=== PATIENT | female | born 1940 | race Caucasian/White ===

== ENCOUNTER 2016-07-07 05:19 | Inpatient (IN) | payer MEDICARE, BC ==
[~2016-07-07 05:19] MED LIST: ARIMIDEX DPS1 MG PO; ASPIR 8181 MG PO; BENICAR HCT 401 EACH PO; COLACE-DPS100 MG PO; CORTISPORIN CR7.5 GM; DILAUDID2 MG PO; DULCOLAX-DPS10 MG PO; FLEXERIL-DPS10 MG PO; LIVALO2 MG PO; MIRALAX DPS17 GM PO; NEURONTIN DPS300 MG PO; NEURONTIN DPS400 MG PO; NEURONTIN DPS600 MG PO; OXY IR DPS10 MG PO; PAMELOR DPS50 MG PO; SENOKOT DPS8.6 MG PO; TYLENOL DPS325 MG PO; VITAMIN B-121000 MCG PO; VITAMIN D35000 UNI1 PO
[2016-07-10] MEDS ORDERED: NEURONTIN DPS300 MG PO (13:37)
[2016-07-10] MEDS ORDERED: ZOFRAN4 MG PO (13:37)
[2016-07-10] MEDS ORDERED: NOLVADEX10 MG PO (13:38)
[2016-07-10] MEDS ORDERED: VALSARTAN-HCTZ1 EACH PO (13:38)
[2016-07-10] MEDS ORDERED: ASA325 MG PO (13:38)
[2016-07-10] MEDS ORDERED: COUMADIN5 MG PO (13:40)
[2016-07-10] MEDS ORDERED: MILK OF MA400 MG/5 M PO (13:40)
[2016-07-10] MEDS ORDERED: [UNRECOGNIZED DRUG - OTHER] IV (13:40)
[2016-07-10] MEDS ORDERED: SENOKOT S1 TAB PO (13:41)
[2016-07-10] MEDS ORDERED: MIRALAX PACKET17 GM PO (13:41)
[2016-07-10] MEDS ORDERED: OXY IR DPS5 MG PO (13:41)
[2016-07-28] MEDS ORDERED: OXY-CONTIN10 MG PO (10:41)
[2016-07-28] MEDS ORDERED: TYLENOL ARTHRI650 MG PO (10:44)
[2016-07-28] MEDS ORDERED: CRESTOR10 MG PO (10:45)
[2016-07-28] MEDS ORDERED: NORCO 5-325 TA1 EACH PO (10:45)
[2016-07-28] MEDS ORDERED: PROTONIX40 MG PO (10:46)
[2016-07-28] MEDS ORDERED: LOPRESSOR DPS50 MG PO (10:46)
[2016-09-16] MEDS ORDERED: CRESTOR10 MG PO (16:32)
[2016-09-16] MEDS ORDERED: NEURONTIN DPS100 MG PO (16:32)
[2016-09-16] MEDS ORDERED: OXY-CONTIN10 MG PO (16:33)
[2016-09-16] MEDS ORDERED: VALSARTAN-HCTZ1 EACH PO (16:33)
[2016-09-16] MEDS ORDERED: METOPROLOL TART25 MG PO (16:33)
[2016-09-16] MEDS ORDERED: DILAUDID2 MG PO (16:34)
[2016-09-16] MEDS ORDERED: OXY IR DPS5 MG PO (16:34)
[2016-09-16] MEDS ORDERED: NORCO 5-325 TA1 EACH PO (16:34)
[2016-09-16] MEDS ORDERED: [UNRECOGNIZED DRUG - MIXTURE] IV (16:36)
[2016-09-16] MEDS ORDERED: MIRALAX PACKET17 GM PO (16:37)
[2016-09-16] MEDS ORDERED: MILK OF MAGNESI10 ML PO (16:37)
[2016-09-16] MEDS ORDERED: ASA CHILDREN'S81 MG PO (16:37)
[2016-09-16] MEDS ORDERED: SENOKOT S1 TAB PO (16:37)
[2016-09-16] MEDS ORDERED: ZOFRAN4 MG PO (16:37)
[2016-09-16] MEDS ORDERED: TYLENOL ARTHRI650 MG PO (16:38)
[2016-09-16] MEDS ORDERED: CYMBALTA30 MG PO (16:38)
[2016-09-16] MEDS ORDERED: NORVASC DPS10 MG PO (16:38)
[2016-09-16] MEDS ORDERED: MEDI-PATCH WIT1 EACH TP (16:40)
== END 2016-07-09 12:28 | disposition home or self-care (01) | DRG 470 ==
DX: M16.11 Unilateral primary osteoarthritis, right hip (principal); N17.9 Acute kidney failure, unspecified; I95.9 Hypotension, unspecified; G62.9 Polyneuropathy, unspecified; N18.3 Chronic kidney disease, stage 3 (moderate); D62 Acute posthemorrhagic anemia; E66.9 Obesity, unspecified; Z68.35 Body mass index [BMI] 35.0-35.9, adult; F41.9 Anxiety disorder, unspecified; M81.0 Age-related osteoporosis without current pathological fracture; I25.2 Old myocardial infarction; I12.9 Hypertensive chronic kidney disease with stage 1 through stage 4 chronic kidney disease, or unspecified chronic kidney disease; M85.80 Other specified disorders of bone density and structure, unspecified site; E78.5 Hyperlipidemia, unspecified; I25.10 Atherosclerotic heart disease of native coronary artery without angina pectoris; Z98.1 Arthrodesis status; Z79.82 Long term (current) use of aspirin; Z85.3 Personal history of malignant neoplasm of breast; Z96.653 Presence of artificial knee joint, bilateral; Z82.49 Family history of ischemic heart disease and other diseases of the circulatory system

== ENCOUNTER 2016-07-24 10:49 | Inpatient (IN) | payer MEDICARE, BC ==
[~2016-07-24] VITALS: Ht 168.9 cm; Wt 100.6 kg
--- NOTE | ~2016-07-24 | CATH ---
Cardiac Diagnostic Report Demographics Patient Name INNA Osborne Gender Female Date of 1940 Age 75 year(s) Patient Number [id number] Date of Study 07/27/2016 Visit Number [id number] Room Number 426 Corporate ID Ht 168.91 cm Wt 100.24 kg Accession Number [id number] BSA 2.1 m kg/m Referring Pablo HERNANDEZ Primary Physician Physician Jordan Gibbons Performing Pablo HERNANDEZ Secondary Physician Physician Jordan Diagnostic Pablo HERNANDEZ Assisting Physician Physician Jordan Interventional Pablo HERNANDEZ Physician Internet Sales Consultant Physician Jordan Findings and Conclusions Diagnostic Findings and Conclusion Non-obstructive coronary artery disease. Mildly elevated LVEDP. Diagnostic Recommendations Medical management. Procedure Description The patient was brought to the diagnostic cardiac catheterization laboratory in the fasting, non-sedated state. Informed consent was obtained in the written and verbal form after the risks and benefits were explained. The patient had no further questions and agreed to proceed. The planned puncture-incision site(s) were clipped and prepped with ChloraPrep and draped in the usual sterile manner. Conscious sedation, supplemental oxygen, and pain control medications were delivered by a registered nurse under physician guidance. Surface ECG rhythm, blood pressure measurement, and pulse oximetry were monitored throughout the procedure. Arterial access. The left radial access site was infiltrated with lidocaine. The vessel was entered with the Seldinger technique. A 6F sheath was advanced into the vessel and used for catheter placement. Left heart catheterization. A JR4 catheter was advanced across the aortic valve to the left ventricle under fluoroscopic guidance. Resting hemodynamics were obtained. LV pressure was obtained. The catheter was gradually withdrawn into the aorta with continuous pressure recording. Selective right coronary angiography. A JR4 catheter was advanced into the right coronary vessel ostium under fluoroscopic guidance. Contrast was injected by hand. Images were obtained in multiple projections. Selective left coronary angiography. A JL3.5 catheter was advanced into the left coronary vessel ostium under Fluoroscopic guidance. Contrast was injected by hand. Images were obtained in multiple projections. Hemostasis: The sheath was removed and a TR Band was placed. Hemostasis was achieved. The patient was transferred to a regular nursing floor via cart accompanied by a nurse. The patient left the laboratory in stable condition. Procedure Procedure Type Diagnostic procedure:Angiography:, Coronary Angios w/LHC, Diagnostic Heart Cath SF Indications: Acute coronary syndrome, Elevated troponin and CAD. The procedure was explained in detail to the patient. Risks, complications and alternative treatments were reviewed. Written consent was obtained. Medications Reviewed with Patient prior to Procedure. Complications: No Complication. Angiographic Findings Dominance: Cardiac Arteries and Lesion Findings LMCA: Normal (0% Stenosis). LAD: Abnormal. Lesion on Prox LAD: Distal subsection.30% stenosis . Lesion on Mid LAD: Proximal subsection.40% stenosis . LCx: Abnormal. Lesion on Mid CX: 40% stenosis . RCA: Abnormal. Lesion on Dist RCA: 20% stenosis . Lesion on R PDA: Proximal subsection.30% stenosis . Coronary Tree Procedure Data Procedure Date Date: 07/27/2016Start: : AMEnd: 10:02 AM Entry Locations - Percutaneous access was performed through the Left Radial artery (Primary location). A 6 Fr sheath was inserted. Hemostasis was successfully obtained using a TR band. Procedure Medications Order and Administration + + +-------+-------+ !Time !Medication !Dosage !Route ! + + +-------+-------+ !07/27/2016 !Versed !2 mg !I.V. ! !09:31 AM ! ! ! ! + + +-------+-------+ !07/27/2016 !Fentanyl !50 mcg !I.V. ! !09:31 AM ! ! ! ! + + +-------+-------+ !07/27/2016 !Sodium Chloride !10 ml !I.V. ! !09:31 AM ! ! ! ! + + +-------+-------+ !07/27/2016 !SF Radial Cocktail: 200mcg Nitro, 2.5 mg ! !I.A. ! !09:34 AM !Verapamil, 5000u Heparin ! ! ! + + +-------+-------+ Devices Used - A6 FrCATH 6FR MULTIPACK CATHETERSwas used for:BilateralCoronary Angios. - A6 FrCATH 6FR MULTIPACK CATHETERSwas used for:BilateralCoronary Angios. - A6 FrCATH 6FR FL3.5 CATHETER 100CMwas used for:LeftsideCoronary Angios. Contrast Material - Isovue 68661 ml Fluoroscopy Time: Diagnostic: 4:06 minutes. Total: 4:06 minutes. Fluoroscopy Dose: Diagnostic: 662 mGy. Total: 662 mGy. Estimated Blood Loss: 6 ml. Medical History Risk Factors The patient risk factors include:treated hypercholesterolemia, treated hypertension, last creatinine: 1.3 mg/dl, creatinine clearance: 60.08 ml/min and dyslipidemia. Admission Data Admission Date: 07/25/2016 Admission Time: 11:23 AM Insurance Payors: Medicare. Clinical Evaluation Leading to Procedure Diagnosed on 07/26/2016 12:00 AM. - The patient's CAD presentation was assessed as: Non-STEMI. - The patient's anginal syndrome during the past two weeks was assessed as: Class III according to the [place] Cardiovascular [employer] Classification System (CCS). - The patient has been in a state of heart failure within the past two weeks. Hemodynamics Condition: Rest O2 Consumption: Estimated: 178.66Heart Rate: 54 bpm Pressures (mmHg) +-----+ + !Site !Pressure ! +-----+ + !AO !119/58 (80) ! +-----+ + !LV !136/4 ,14 ! +-----+ + !AO !140/65 (93) ! +-----+ + !LV !134/4 ,14 ! +-----+ + Valve Gradients and Areas + +---------+---------+---------+ +---------+ + !Valve !Peak !Mean !Area !Index !Flow !Source ! + +---------+---------+---------+ +---------+ + !Aortic !0 !0 ! ! ! ! ! + +---------+---------+---------+ +---------+ + !Aortic !0 !0 ! ! ! ! ! + +---------+---------+---------+ +---------+ + Shunts Oxygen Values O2 Capacity 131.92 O2 Consumption 178.66 Discharge Data Discharge Date: 07/27/2016 Hospital Status: Inpatient Signatures
--- NOTE | ~2016-07-24 | ECH ---
Transthoracic Echocardiography Report (TTE) Demographics Patient Name WALKER KEITH Date of Study 07/25/2016 Patient Number [id number] Visit Number [id number] Date of 1940 Room Number 426 Accession Number [id number] Gender Female Age 75 year(s) Referring Pablo HERNANDEZ Secretary Administrative Assistant Dalia Mendez Physician Jordan HOOD Boone MD Physician Interpreting Pablo HERNANDEZ Associate Material Handler Physician Jordan Supervising Ordering Physician Pablo HERNANDEZ MD/DESTINEE Ortega Nurse Stress Fulfillment Coordinator Conclusions Contractility Score Summary Normal Left Ventricular contractility was noted. Summary Technically good exam. The estimated left ventricular ejection fraction is 60-65%. Diastolic assessment reveals Grade I diastolic dysfunction. There appears to be a tiny perimembranous ventricular septal defect. The left atrium is mildly dilated by LA volume index measurement. Mild tricuspid regurgitation by color Doppler. There is mild pulmonary hypertension. The pulmonary pressure (RVSP) is 44 mmHg. The ascending aorta appears mildly dilated. The maximum diameter measures 3.4 cm. Recommendation The patient will be given the results of this study by the physician who ordered the exam. Procedure Type of Study TTE procedure:Echo Complete SF. Procedure Date Date: 07/25/2016 Start: 06:12 PM Technical Quality: Good visualization Indications:Elevated Troponin, Chest pain, Hypertension and Coronary artery disease. Appropriate Use Criteria: 9 Height: 66 inches Weight: 223 pounds BSA: 2.09 m Rhythm: NSR HR: 76 bpm BP: 149/73 mmHg M-Mode/2D Measurements LV Diastolic Dimension: 4.77 cm LV Systolic Dimension: 3.64 cm LV Septum Diastolic: 0.95 cm LV PW Diastolic: 0.98 cm AO Root Dimension: 2.8 cm Cardiac Output: 6.64 l/min LA Dimension: 4.84 cm Cardiac Index: 3.18 l/min*m RV Diastolic Dimension: 3.74 cm LA volume index: 40 ml/m LVOT: 1.97 cm LVOT VTI: 28.69 cm RV Base: 3.6 cm LV Stroke volume: 87.4 ml RV Mid: 2.5 cm LV Stroke volume index: 41.82 ml/m TAPSE: 2 cm TDI-S': 15 cm/s Doppler Measurements AV Mean Gradient: 7.22 mmHg MV Peak E-Wave: 0.72 m/s LVOT Peak Velocity: 1.36 m/s MV Peak A-Wave: 0.89 m/s AV Area (Continuity):2.39 cm MV P1/2t: 66.1 msec TR Velocity:3.13 m/s TR Gradient:39.19 mmHg MV Deceleration Time: 244.5 msec Estimated RAP:5 mmHg MV Area (PHT): 3.33 cm Estimated RVSP: 44 mmHg PV Peak Velocity: 1.11 m/s E' Septal Velocity: 0.08 m/s PV Peak Gradient: 4.95 mmHg E' Lateral Velocity: 0.14 m/s Estimated PASP: 44.19 mmHg A' Septal Velocity: 0.1 m/s RA Area: 16.44 cm Findings Left Ventricle Normal left ventricle size and function. Diastolic assessment reveals Grade I diastolic dysfunction. There appears to be a tiny perimembranous ventricular septal defect. Right Ventricle Normal right ventricle structure and function. Left Atrium The left atrium is mildly dilated by LA volume index measurement. Right Atrium Normal right atrial size. Mitral Valve Normal mitral valve structure and function. Mild mitral regurgitation by color Doppler. Aortic Valve Normal aortic valve structure and function. Tricuspid Valve Normal tricuspid valve structure and function. Mild tricuspid regurgitation by color Doppler. There is mild pulmonary hypertension. The pulmonary pressure (RVSP) is 44 mmHg. Pulmonic Valve Normal pulmonic valve structure and function. Trivial pulmonic valve regurgitation by color Doppler. Pericardial Effusion No evidence of pericardial effusion. Miscellaneous The ascending aorta appears mildly dilated. The maximum diameter measures 3.4 cm. Pleural Effusion No evidence of pleural effusion. Contractility Score LV regional wall motion:(0-Non visualized 1-Normal 2-Hypokinesis 3-Akinesis 4-Dyskinesis 5-Aneurysm) Signature
[~2016-07-24 10:49] MED LIST changes: +ASA325 MG PO; +COUMADIN5 MG PO; +MILK OF MA400 MG/5 M PO; +MIRALAX PACKET17 GM PO; +NOLVADEX10 MG PO; +OXY IR DPS5 MG PO; +SENOKOT S1 TAB PO; +VALSARTAN-HCTZ1 EACH PO; +ZOFRAN4 MG PO; +[UNRECOGNIZED DRUG - OTHER] IV
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
[2016-07-28] MEDS ORDERED: OXY-CONTIN10 MG PO (10:41)
[2016-07-28] MEDS ORDERED: TYLENOL ARTHRI650 MG PO (10:44)
[2016-07-28] MEDS ORDERED: CRESTOR10 MG PO (10:45)
[2016-07-28] MEDS ORDERED: NORCO 5-325 TA1 EACH PO (10:45)
[2016-07-28] MEDS ORDERED: LOPRESSOR DPS50 MG PO (10:46)
[2016-07-28] MEDS ORDERED: PROTONIX40 MG PO (10:46)
--- NOTE | 2016-07-28 12:01 | HP ---
ADMIT: 07/24/2016 RM/LOC: 426 [facility] MR#: [id number] [address] [address] WALKER KEITH [address] [place] [address] History and Physical SEX: F AGE: 75 : 1940 DATE OF SERVICE: CHIEF COMPLAINT: Back pain, shortness of breath, neck pain. HISTORY OF PRESENT ILLNESS: The patient is a very pleasant, 75-year-old female. She has a past medical history of coronary disease, hypertension, hyperlipidemia, recent right anterior hip replacement, prior history of breast cancer, currently on DVT prophylaxis after her hip replacement, who presents to medical stay today for a hospital followup visit. She had her hip replaced on the 07/07. The patient notes today she just does not feel right. This morning, she had an abrupt onset of pain across her back more on the right midback, has had this deep 4/5 pain, it is associated with this. She has been short of breath, dizzy, and a little diaphoretic, as well as had some pain kind of radiating up from her chest into her anterior neck. The patient notes she has never quite had pain like this, and notes it is different than any anginal discomfort she has had before. She just does not feel like she might be able to tolerate exercise as well. She noted that she has been dealing with a little bit more hip pain in the last couple of days after doing quite well after surgery. No nausea or vomiting is noted. No abdominal pain. Notes that she might be not eating the best after surgery. She is taking all her medicines as directed. She denies any actual chest pain or palpitations. Does continue to have ongoing issues with constipation, but no bladder problems are noted. No headache or vision changes. Does note her weight is stable. With this finding, she was admitted for observation. PAST MEDICAL HISTORY: 1. Anxiety. 2. Osteopenia. 3. Osteoarthritis of the knee, status post bilateral total knee arthroplasty. 4. Osteoarthritis of the hip, status post right anterior total hip arthroplasty. 5. Obesity. 6. History of breast cancer, status post lumpectomy, on Femara. 7. Hypertension. 8. Hyperlipidemia. 9. History of coronary artery disease, status post non ST-segment elevation [place]. 10.History of cervical spinal stenosis, status post operative intervention. 11.History of lumbar spinal stenosis, status post lumbar fusion and did plan about pain pump. 12.Chronic kidney disease, stage 3. 13.Status post hysterectomy. 14.Status post as mentioned pain pump placement. MEDICATIONS: Her current medications include: 1. Acetaminophen. ADMIT: 07/24/2016 RM/LOC: 426 [facility] MR#: [id number] [address] [address] WALKER KEITH [facility] [place] [address] History and Physical SEX: F AGE: 75 : 1940 2. Aspirin. 3. Fentanyl infusion via epidural pain pump. 4. Gabapentin. 5. Magnesium. 6. Zofran. 7. Oxycodone. 8. MiraLax. 9. Senna. 10.Tamoxifen. 11.Diovan. 12.Coumadin. ALLERGIES: 1. AARON INHIBITORS. 2. ATORVASTATIN. 3. PENICILLINS. FAMILY HISTORY: Mother with coronary disease, arthritis, dementia, osteoporosis. Father with coronary disease, history of COPD. SOCIAL HISTORY: She is a nonsmoker, occasional drinker. Lives at home with her . REVIEW OF SYSTEMS: As noted above. All systems are reviewed and negative. PHYSICAL EXAMINATION: VITAL SIGNS: 132/80, 64, 16. She is afebrile. Her weight is 223 pounds. GENERAL: This is an obese female. She appears her stated age. She is anxious. She is alert and orient x3. HEENT: Normocephalic and atraumatic. Mucous membranes are little dry. NECK: Supple. SKIN: Normal moisture. No rashes are noted. NECK: Supple. LUNGS: Clear to auscultation without wheezes, rhonchi, or rales. HEART: Regular rate and rhythm. No murmurs, clicks, or rubs. ABDOMEN: Soft, nontender, nondistended. Positive bowel sounds throughout. EXTREMITIES: Show no edema. NEUROLOGIC: Shows cranial nerves are intact. No focal deficits are noted. Her lower extremity vascular exam shows, no edema. She has good peripheral pulses. Her orthopedic exam shows a right hip incision is well healed, clean, and dry. LABORATORY DATA: EKG here in clinic, shows normal sinus rhythm at 77 beats per minute, it was at compared to one from 2009, and I do not see any significant ST or T-wave changes noted. Right now, her cardiac enzymes, blood count, metabolic panel, chest x-ray, and INR pending. ADMIT: 07/24/2016 RM/LOC: 426 [facility] MR#: [id number] [address] [address] WALKER KEITH [facility] [place] [address] History and Physical SEX: F AGE: 75 : 1940 ASSESSMENT AND PLAN: 1. Thoracic back pain. 2. Dyspnea. 3. Dizziness. 4. Neck pain. 5. Known history of coronary artery disease. 6. Hypertension. 7. Status post recent hip replacement. 8. Deep vein thrombosis prophylaxis with Coumadin. 9. Chronic back pain, status post implantable pain pump. 10.DVT prophylaxis. 11.Status post recent total hip arthroplasty. 12.History of breast cancer, previously on Femara. At this time, cardiac enzymes are pending. Her EKG shows nothing acute. I am also waiting on her blood count, metabolic panel, and INR. Certainly, will always be concerned with her dyspnea, about PE, but if her INR is therapeutic, I am not going to go that route. We will plan on serial cardiac enzymes, EKG, and telemetry monitoring, and we will see how she does. In the past, she had very atypical symptoms of angina, and we will want to follow her very closely as an observation patient. Mason Glasgow MD/ vivienne JOB #: [id number] CC: Mason Glasgow, Attending Physician Mason Glasgow, Family Physician
--- NOTE | 2016-08-07 12:50 | DS ---
ADMIT: 07/25/2016 RM/LOC: 426 [facility] MR#: [id number] [address] [address] WALKER KEITH [address] [place] [address] Discharge Summary SEX: F AGE: 75 : 1940 ADMISSION DATE: 07/25/2016 DISCHARGE DATE: 07/27/2016 DISCHARGE DIAGNOSES: 1. Elevated troponin, possible ACS (acute coronary syndrome). 2. Nonobstructive coronary disease, status post left heart catheterization. 3. Hypertension. 4. Hyperlipidemia. 5. Atypical chest pain, resolved. 6. History of breast cancer. 7. Severe lumbar spinal stenosis, status post intervention with implantable pain pump. 8. Anxiety. 9. Status post right total hip arthroplasty, on DVT (deep venous thrombosis) prophylaxis with Coumadin. PROCEDURES: 1. Left heart catheterization. 2. Echocardiogram. CONSULTATIONS: Cardiology. REASON FOR ADMISSION: A very pleasant, 75-year-old female with extensive past medical history, presented to [facility]. Was a direct admission from the office when she presented to clinic with complaints of back, chest and pain radiating to her neck. With her symptoms and her history of coronary disease she was admitted for observation. For complete details, please see H and P dictated on the day of admission. At the time of admission, the patient was placed in a telemetry bed. She was monitored with serial cardiac enzymes, EKGs and telemetry monitoring. She did have a mild bump in her troponin and Cardiology was consulted. She really remained pain free. They trended out her enzymes with her history and risk factors. She underwent left heart catheterization. It just really showed nonobstructive disease. No interventions were done. Medications were titrated, a statin was added back, as well as nitrate. There was question whether this was just catecholamine induced troponin leak. The patient felt well, ambulated and ate without difficulty and was thought to be ready for discharge on 07/27. Her discharge medications are found on her discharge medication sheet. Her diet will be cardiac diet as tolerated. Her activity will be as tolerated, for physical therapy with hip and we will see her back in the office in the next couple of weeks. She will also have follow up as scheduled with cardiology. Mason Glasgow MD/ gilmarg JOB #: [id number] CC: Mason Glasgow MD, Attending Physician ADMIT: 07/25/2016 RM/LOC: 426 [facility] MR#: [id number] [address] [address] WALKER KEITH [facility] [place] [address] Discharge Summary SEX: F AGE: 75 : 1940 Mason Glasgow MD, Family Physician
[2016-09-16] MEDS ORDERED: CRESTOR10 MG PO (16:32)
[2016-09-16] MEDS ORDERED: NEURONTIN DPS100 MG PO (16:32)
[2016-09-16] MEDS ORDERED: VALSARTAN-HCTZ1 EACH PO (16:33)
[2016-09-16] MEDS ORDERED: OXY-CONTIN10 MG PO (16:33)
[2016-09-16] MEDS ORDERED: METOPROLOL TART25 MG PO (16:33)
[2016-09-16] MEDS ORDERED: OXY IR DPS5 MG PO (16:34)
[2016-09-16] MEDS ORDERED: NORCO 5-325 TA1 EACH PO (16:34)
[2016-09-16] MEDS ORDERED: DILAUDID2 MG PO (16:34)
[2016-09-16] MEDS ORDERED: [UNRECOGNIZED DRUG - MIXTURE] IV (16:36)
[2016-09-16] MEDS ORDERED: MIRALAX PACKET17 GM PO (16:37)
[2016-09-16] MEDS ORDERED: SENOKOT S1 TAB PO (16:37)
[2016-09-16] MEDS ORDERED: ZOFRAN4 MG PO (16:37)
[2016-09-16] MEDS ORDERED: MILK OF MAGNESI10 ML PO (16:37)
[2016-09-16] MEDS ORDERED: ASA CHILDREN'S81 MG PO (16:37)
[2016-09-16] MEDS ORDERED: NORVASC DPS10 MG PO (16:38)
[2016-09-16] MEDS ORDERED: TYLENOL ARTHRI650 MG PO (16:38)
[2016-09-16] MEDS ORDERED: CYMBALTA30 MG PO (16:38)
[2016-09-16] MEDS ORDERED: MEDI-PATCH WIT1 EACH TP (16:40)
== END 2016-07-27 16:05 | disposition home or self-care (01) | DRG 287 ==
LOC: 4PCU 10:49
PROVIDERS: ADMIT Internal Medicine
PROC: 4A023N7 Measurement of Cardiac Sampling and Pressure, Left Heart, Percutaneous Approach (ICD-10-PCS; principal; 2016-07-27)
PROC: B2111ZZ Fluoroscopy of Multiple Coronary Arteries using Low Osmolar Contrast (ICD-10-PCS; principal; 2016-07-27)
DX: I25.110 Atherosclerotic heart disease of native coronary artery with unstable angina pectoris (principal); D63.1 Anemia in chronic kidney disease; N18.3 Chronic kidney disease, stage 3 (moderate); I12.9 Hypertensive chronic kidney disease with stage 1 through stage 4 chronic kidney disease, or unspecified chronic kidney disease; R79.89 Other specified abnormal findings of blood chemistry; E78.5 Hyperlipidemia, unspecified; I25.2 Old myocardial infarction; E66.9 Obesity, unspecified; Z68.35 Body mass index [BMI] 35.0-35.9, adult; F41.9 Anxiety disorder, unspecified; M48.06 Spinal stenosis, lumbar region; M85.80 Other specified disorders of bone density and structure, unspecified site; Z96.653 Presence of artificial knee joint, bilateral; Z96.641 Presence of right artificial hip joint; Z85.3 Personal history of malignant neoplasm of breast; Z98.1 Arthrodesis status; Z79.82 Long term (current) use of aspirin; Z82.49 Family history of ischemic heart disease and other diseases of the circulatory system; Z79.01 Long term (current) use of anticoagulants

== ENCOUNTER → 2016-08-25 | Outpatient (CLI) | payer MEDICARE, BC ==
[~2016-08-25] MED LIST changes: +ASA CHILDREN'S81 MG PO; +CRESTOR10 MG PO; +CYMBALTA30 MG PO; +LOPRESSOR DPS50 MG PO; +MEDI-PATCH WIT1 EACH TP; +METOPROLOL TART25 MG PO; +MILK OF MAGNESI10 ML PO; +NEURONTIN DPS100 MG PO; +NORCO 5-325 TA1 EACH PO; +NORVASC DPS10 MG PO; +OXY-CONTIN10 MG PO; +PROTONIX40 MG PO; +TYLENOL ARTHRI650 MG PO; +[UNRECOGNIZED DRUG - MIXTURE] IV
== END | disposition home or self-care (01) ==
LOC: RAD.S 15:35
DX: Z47.89 Encounter for other orthopedic aftercare (principal); M47.816 Spondylosis without myelopathy or radiculopathy, lumbar region; M43.16 Spondylolisthesis, lumbar region; Z98.1 Arthrodesis status

== ENCOUNTER 2016-09-04 09:56 | Emergency (ER) | payer MEDICARE, BC ==
[~2016-09-04 09:56] MED LIST changes: -ASA CHILDREN'S81 MG PO; -CYMBALTA30 MG PO; -MEDI-PATCH WIT1 EACH TP; -METOPROLOL TART25 MG PO; -MILK OF MAGNESI10 ML PO; -NEURONTIN DPS100 MG PO; -NORVASC DPS10 MG PO; -[UNRECOGNIZED DRUG - MIXTURE] IV
--- NOTE | 2016-09-08 16:07 | ER ---
ADMIT: 09/04/2016 RM/LOC: ER [facility] MR#: [id number] 2620 [facility] [address] [place], [place] [address] WALKER KEITH [address] [address] Emergency Room Report SEX: F AGE: 76 : 1940 DATE: 09/04/2016 ADDENDUM: A 76-year-old white female, coming in with kind of atypical chest pain, it is posterior, kind of goes to her right shoulder. She is concerned about this. She recently had a heart cath that did not show any obstructive disease, and has been worked up for that. She does have cardiac disease, hypertension, hyperlipidemia. But as noted, recent heart disease did not show anything. We did do a CTA, she is somewhat concerned about that, and that was negative. I did speak to Dr. Glasgow. Besides her chronic pain, there is a little bit of underlying anxiety. At this time, she needs some of her pain medications refilled which I will do since this is the weekend, it will be 5 mg one to two p.o. q.6 p.r.n. pain which is what her pain doctor has given her for breakthrough pain. Also, I have spoke to Dr. Glasgow, we are going to try her on a little Xanax 0.25 mg one p.o. q.6 p.r.n. anxiety stress. She should then be followed up with her doctor. We gave her 30 of each of those. CONDITION ON DISCHARGE: Improved. Chucky Hayward MD/ vivienne JOB #: [id number] CC: Chucky Hayward MD, Attending Physician UNKNOWN, Family Physician
[2016-09-16] MEDS ORDERED: CRESTOR10 MG PO (16:32)
[2016-09-16] MEDS ORDERED: NEURONTIN DPS100 MG PO (16:32)
[2016-09-16] MEDS ORDERED: OXY-CONTIN10 MG PO (16:33)
[2016-09-16] MEDS ORDERED: METOPROLOL TART25 MG PO (16:33)
[2016-09-16] MEDS ORDERED: VALSARTAN-HCTZ1 EACH PO (16:33)
[2016-09-16] MEDS ORDERED: DILAUDID2 MG PO (16:34)
[2016-09-16] MEDS ORDERED: NORCO 5-325 TA1 EACH PO (16:34)
[2016-09-16] MEDS ORDERED: OXY IR DPS5 MG PO (16:34)
[2016-09-16] MEDS ORDERED: [UNRECOGNIZED DRUG - MIXTURE] IV (16:36)
[2016-09-16] MEDS ORDERED: ASA CHILDREN'S81 MG PO (16:37)
[2016-09-16] MEDS ORDERED: MILK OF MAGNESI10 ML PO (16:37)
[2016-09-16] MEDS ORDERED: ZOFRAN4 MG PO (16:37)
[2016-09-16] MEDS ORDERED: MIRALAX PACKET17 GM PO (16:37)
[2016-09-16] MEDS ORDERED: SENOKOT S1 TAB PO (16:37)
[2016-09-16] MEDS ORDERED: CYMBALTA30 MG PO (16:38)
[2016-09-16] MEDS ORDERED: NORVASC DPS10 MG PO (16:38)
[2016-09-16] MEDS ORDERED: TYLENOL ARTHRI650 MG PO (16:38)
[2016-09-16] MEDS ORDERED: MEDI-PATCH WIT1 EACH TP (16:40)
== END 2016-09-04 13:55 | disposition home or self-care (01) ==
LOC: ER 09:56
DX: R07.89 Other chest pain (principal); G89.4 Chronic pain syndrome; I10 Essential (primary) hypertension; E78.5 Hyperlipidemia, unspecified; Z90.710 Acquired absence of both cervix and uterus; Z88.0 Allergy status to penicillin

== ENCOUNTER 2016-09-09 07:43 | Emergency (ER) | payer MEDICARE, BC ==
--- NOTE | 2016-09-14 10:35 | ER ---
ADMIT: 09/09/2016 RM/LOC: ER [facility] MR#: [id number] 2620 [facility] [address] [place], [place] [address] WALKER KEITH [facility] [place] [address] Emergency Room Report SEX: F AGE: 76 : 1940 DATE: 09/09/2016 ADDENDUM: This 76-year-old, white female coming in with recurrent chronic back pain. She is on a pain pump and it is not helping her. Dilaudid has helped her in the past. I have spoken with her pain doctor, Dr. YUE Bar, asked for an MRI of her back, just for checking the pain pump and catheter. That was negative. I spoke with Dr. Wright. We have scheduled her for a bone scan to make sure she does not have recurrence of her breast cancer. Evidently she has been 5 years out free of cancer. She stage is 3C, I do believe. I have also spoke to her primary, Dr. Mason Glasgow, just to upgrade him and fill him in on all this. We did not draw any blood work, just got the MRI. She has gotten 2 mg plus of Dilaudid, she is very comfortable with that. We are discharging home with 2 mg 1 p.o. q.6 p.r.n. pain of the Dilaudid substituting for the oxycodone which was not helping. CONDITION ON DISCHARGE: Improved. Chucky Hayward MD/ vivienne JOB #: [id number] CC: Chucky Hayward MD, Attending Physician Mason Glasgow MD, Family Physician
[2016-09-16] MEDS ORDERED: NEURONTIN DPS100 MG PO (16:32)
[2016-09-16] MEDS ORDERED: CRESTOR10 MG PO (16:32)
[2016-09-16] MEDS ORDERED: VALSARTAN-HCTZ1 EACH PO (16:33)
[2016-09-16] MEDS ORDERED: OXY-CONTIN10 MG PO (16:33)
[2016-09-16] MEDS ORDERED: METOPROLOL TART25 MG PO (16:33)
[2016-09-16] MEDS ORDERED: NORCO 5-325 TA1 EACH PO (16:34)
[2016-09-16] MEDS ORDERED: DILAUDID2 MG PO (16:34)
[2016-09-16] MEDS ORDERED: OXY IR DPS5 MG PO (16:34)
[2016-09-16] MEDS ORDERED: [UNRECOGNIZED DRUG - MIXTURE] IV (16:36)
[2016-09-16] MEDS ORDERED: ASA CHILDREN'S81 MG PO (16:37)
[2016-09-16] MEDS ORDERED: SENOKOT S1 TAB PO (16:37)
[2016-09-16] MEDS ORDERED: MIRALAX PACKET17 GM PO (16:37)
[2016-09-16] MEDS ORDERED: ZOFRAN4 MG PO (16:37)
[2016-09-16] MEDS ORDERED: MILK OF MAGNESI10 ML PO (16:37)
[2016-09-16] MEDS ORDERED: CYMBALTA30 MG PO (16:38)
[2016-09-16] MEDS ORDERED: TYLENOL ARTHRI650 MG PO (16:38)
[2016-09-16] MEDS ORDERED: NORVASC DPS10 MG PO (16:38)
[2016-09-16] MEDS ORDERED: MEDI-PATCH WIT1 EACH TP (16:40)
== END 2016-09-09 13:30 | disposition home or self-care (01) ==
LOC: ER 07:43
DX: G89.29 Other chronic pain (principal); M54.6 Pain in thoracic spine; F41.9 Anxiety disorder, unspecified; C50.919 Malignant neoplasm of unspecified site of unspecified female breast; J44.9 Chronic obstructive pulmonary disease, unspecified; E11.9 Type 2 diabetes mellitus without complications; I25.2 Old myocardial infarction; I25.10 Atherosclerotic heart disease of native coronary artery without angina pectoris; Z88.8 Allergy status to other drugs, medicaments and biological substances; Z88.0 Allergy status to penicillin

== ENCOUNTER 2016-09-10 03:34 | Inpatient (IN) | payer MEDICARE, BC ==
[~2016-09-10] VITALS: Ht 168.9 cm; Wt 94.7 kg
--- NOTE | 2016-09-10 19:01 | ER ---
ADMIT: 09/10/2016 RM/LOC: ER [facility] MR#: [id number] [id number] [place], [place] [address] WALKER KEITH [address] [place] [address] Emergency Room Report SEX: F AGE: 76 : 1940 DATE: 09/10/2016 HISTORY OF PRESENT ILLNESS: The patient is a 76-year-old female with a past medical history of breast cancer in remission, anxiety, chronic low back pain, status post multiple back surgeries per patient and pain pump placement, came to the ER with chief complaint of right posterior shoulder pain. The patient states pain has started a week ago and is continues and Dilaudid p.o. did not resolve the pain. The patient was in the ER a week ago for the same pain, and CT angio of the chest was negative for any pulmonary emboli. The patient was discharged home with pain control meds and the pain did not resolve per patient and is not increasing with range of motion also. The patient came back this morning and got an MRI of the back to check for the pain pump, which did not show any disruption of the connections of the pain pump. All the previous cardiac workup recently and angiogram was negative for obstruction. The patient had extensive workup in the last 2 weeks. All the previous charts were reviewed. PHYSICAL EXAMINATION: GENERAL: When I saw the patient, she was calm and quite, but she states she is in moderate pain at the moment. HEENT: The patient's head and neck was noncontributory and negative. Trachea was midline. CHEST: Clear bilaterally. HEART: Normal heart sounds without any gallops or murmurs. ABDOMEN: Soft. EXTREMITIES: Normal range of motion of extremities without any swelling. Motor and sensory are grossly normal. NEURO: Grossly normal. The rest of the physical exam is noncontributory. The patient received multiple doses of Dilaudid for pain control. The patient received a dose of 0.5 mg Ativan IV for control of anxiety. I rechecked on the patient and she states the pain again returned back, the patient and the family strongly insist that she could be admitted for pain control and states that she had been to the ER 4 times during the last week. The case was discussed with and the patient was admitted for further followups and treatments of the right posterior chest pain. Rommel Connell MD/ vivienne JOB #: [id number] CC: Rommel Connell MD, Attending Physician
--- NOTE | 2016-09-13 12:33 | HP ---
ADMIT: 09/10/2016 RM/LOC: 508 [facility] MR#: [id number] [address] [address] WALKER KEITH [address] [place] [address] History and Physical SEX: F AGE: 76 : 1940 Corrected: 09/11/2016 0950 chioma DATE OF SERVICE: CHIEF COMPLAINT: Upper back pain. HISTORY OF PRESENT ILLNESS: The patient is a 76-year-old female with past medical history of coronary artery disease, nonobstructive; history of breast cancer; chronic lumbar back pain status post intervention with implantable pain pump presented to [facility] Emergency Room today with complaints of upper back pain started approximately 8 days ago, noticed just between her spine and her shoulder blade. She notes at times, has intermittently been a little short of breath. She notes that nothing really makes it better or worse except the pain medicines have helped a lot. As mentioned rates it about 8/10 without any travel. It is probably the area of the size of a quarter, just intense in that area. She has had approximately 2 other emergency room visits in prior days where she underwent advanced imaging and was sent home with pain control but just on this occasion, just could not "take it anymore" and she was admitted for further evaluation and treatment. She denies any injury to this area. As mentioned, it does not bother her when she moves her shoulder. She denies any actual chest discomfort, currently denies any shortness of breath. Notes she has not been eating or sleeping very well, has been taking all of her medications as directed. She does mention some issues with chronic constipation. PAST MEDICAL HISTORY: 1. History of nonobstructive coronary disease status post normal left heart catheterization/nonSTEMI on July 27, 2016. 2. Hypertension. 3. Hyperlipidemia. 4. History of breast cancer. 5. History of severe lumbar spinal stenosis status post operative intervention. 6. History of cervical spinal stenosis status post operative intervention. 7. Status post implantable pain pump. 8. CKD 3. 9. Status post hysterectomy. 10.She is status post lumpectomy, on Femara. 11.History of osteoarthritis of hip, status post right anterior total hip arthroplasty. 12.Osteoarthritis of knees status post bilateral total knee arthroplasty. 13.Osteopenia. 14.She does mention some issues with chronic constipation. CURRENT HOME MEDICATIONS: Are found in the chart, no recent changes. SOCIAL HISTORY: She is . She is a nonsmoker, occasional drinker. Lives here in [place]. She is retired. ADMIT: 09/10/2016 RM/LOC: 508 [facility] MR#: [id number] [address] [address] WALKER KEITH [facility] [place] [address] History and Physical SEX: F AGE: 76 : 1940 FAMILY HISTORY: Noncontributory. REVIEW OF SYSTEMS: As noted above. All other systems reviewed and negative. PHYSICAL EXAMINATION: VITAL SIGNS: 96.9, 75, 18, 153/70, 96% on room air. GENERAL: This is an obese female, in no apparent distress although she does appear a little anxious and tearful at times. HEENT: Head is normocephalic atraumatic. Mucous membranes are little dry. NECK: Supple. LUNGS: Clear. HEART: Regular. ABDOMEN: Soft, nontender, and nondistended. Positive bowel sounds throughout. EXTREMITIES: She moves all 4 extremities. Trace edema is noted. MUSCULOSKELETAL: She has good range of motion of that right shoulder. I do not notice any redness, warmth, or effusion. Rotator cuff appears to be intact. She is tender to palpation lateral to the thoracic spine, but medial to the scapula. I do not notice any soft tissue mass. I do not notice any changes in the skin, but she is tender in that area, probably about a 3 or 4 cm area. LABORATORY DATA: Lab work is currently pending. Imaging from her last couple emergency room visits were reviewed. The MRI of the thoracic spine showed no specific abnormalities in that area from L1 to T9. There are no fractures, no abnormal signals. CT scan of the chest from 09/04 showed no acute chest abnormality, no PE. There is mild cardiomegaly with some coronary artery calcifications. She has interval decrease nodular density of the right breast with adjacent calcifications, likely postoperative hematoma or seroma. Recent lumbar spine CT from 08/25 showed postoperative changes at the L4-L5 level with prior previous laminectomy, posterior spinal stabilization everything appeared to be in place. All stable-appearing grade 1 anterolisthesis of L4 on L5 with bilateral spondylosis. Some millimetric foci of calcification posterior aspect of thecal sac at the previous L4-L5 cervical level. Multilevel degenerate changes including the lumbar spine. There were no acute compression fractures noted of T12 through L5. ASSESSMENT AND PLAN: 1. Subacute right-sided paraspinous thoracic back pain. 2. History of breast cancer. 3. History of coronary disease. 4. Hypertension. 5. Hyperlipidemia. 6. Depression. 7. Anxiety. 8. Chronic low back pain status post intrathecal pain pump placement recently. ADMIT: 09/10/2016 RM/LOC: 508 [facility] MR#: [id number] [address] [place] [address] WALKER KEITH [facility] [place] [address] History and Physical SEX: F AGE: 76 : 1940 At this time, the patient is still rating her pain about 8/10. I am going to place her on a Dilaudid SURFACE SUPERVISOR. We are going to check some baseline lab work on her. We will have the pain medicine doctor see her. I do not know how high that intrathecal catheter would go, wonder if it could be causing her any problems. So we will have the pain doctors stop by. She was previously scheduled for a bone scan given her breast cancer and we are going to go ahead and try to get that scheduled while she is an inpatient right now. We will get her on the remainder of her home medications and we will follow her closely. Mason Glasgow MD/ vivienne JOB #: [id number] CC: Mason Glasgow, Attending Physician Mason Glasgow, Family Physician Corrected: 09/11/2016 0950 chioma
[2016-09-16] MEDS ORDERED: NEURONTIN DPS100 MG PO (16:32)
[2016-09-16] MEDS ORDERED: CRESTOR10 MG PO (16:32)
[2016-09-16] MEDS ORDERED: METOPROLOL TART25 MG PO (16:33)
[2016-09-16] MEDS ORDERED: VALSARTAN-HCTZ1 EACH PO (16:33)
[2016-09-16] MEDS ORDERED: OXY-CONTIN10 MG PO (16:33)
[2016-09-16] MEDS ORDERED: DILAUDID2 MG PO (16:34)
[2016-09-16] MEDS ORDERED: NORCO 5-325 TA1 EACH PO (16:34)
[2016-09-16] MEDS ORDERED: OXY IR DPS5 MG PO (16:34)
[2016-09-16] MEDS ORDERED: [UNRECOGNIZED DRUG - MIXTURE] IV (16:36)
[2016-09-16] MEDS ORDERED: ASA CHILDREN'S81 MG PO (16:37)
[2016-09-16] MEDS ORDERED: SENOKOT S1 TAB PO (16:37)
[2016-09-16] MEDS ORDERED: MIRALAX PACKET17 GM PO (16:37)
[2016-09-16] MEDS ORDERED: MILK OF MAGNESI10 ML PO (16:37)
[2016-09-16] MEDS ORDERED: ZOFRAN4 MG PO (16:37)
[2016-09-16] MEDS ORDERED: TYLENOL ARTHRI650 MG PO (16:38)
[2016-09-16] MEDS ORDERED: CYMBALTA30 MG PO (16:38)
[2016-09-16] MEDS ORDERED: NORVASC DPS10 MG PO (16:38)
[2016-09-16] MEDS ORDERED: MEDI-PATCH WIT1 EACH TP (16:40)
--- NOTE | 2016-09-18 17:09 | DS ---
ADMIT: 09/13/2016 RM/LOC: 512 [facility] MR#: [id number] [address] [address] WALKER KEITH [address] [place] [address] Discharge Summary SEX: F AGE: 76 : 1940 ADMISSION DATE: 09/13/2016 DISCHARGE DATE: 09/15/2016 DISCHARGE DIAGNOSES: 1. Intractable thoracic back pain, likely of musculoskeletal origin, status post trigger point injection. 2. Delirium secondary to medications, resolved. 3. Headache secondary to medications, resolved. 4. Nausea secondary to medications, resolved. 5. History of breast cancer. 6. History of severe lumbar spinal degenerative disease, status post intrathecal pain pump. 7. History of cervical degenerative disease. 8. Depression/anxiety. 9. Hypertension. 10.History of coronary disease. 11.History of hyperlipidemia. CONSULTATIONS: Rusty Bar MD with pain management. PROCEDURES: Trigger point injection right posterior paraspinal musculature. REASON FOR ADMISSION: A pleasant 76-year-old female, multiple medical problems including chronic pain, status post recent intrathecal pain pump. Presented to [facility] emergency room on the day of admission this being her third presentation with acute and intractable right posterior paraspinous pain. This had tried to be managed as an outpatient basis, but could not get her pain under control and she was admitted for further evaluation and treatment. For complete details, please see H and P dictated on the day of admission. HOSPITAL COURSE: At the time of admission, the patient was admitted to a telemetry bed. We checked lab work, cardiac enzymes and chest x-ray, all to make sure this was not cardiopulmonary. She had recently undergone a CT scan of the chest at one of her ER visits that showed no pulmonary embolism and no signs of an aortic dissection or pulmonary pathology. We started her on Dilaudid STEAMFITTER in addition to her intrathecal pain pump. Dr. Alysia Bar was consulted. She also had recently undergone an MRI of the thoracic spine that showed her intrathecal pain pump catheter was in good place, no abnormalities of the thoracic spine were noted. With her breast cancer history, she underwent a bone scan that showed no pathologic bony lesions and that was reviewed by radiology and by Oncology. We were able to get her pain under better control. After everything came back negative she underwent a trigger point injection in that area which got her better pain relief. We had also added Cymbalta and baclofen and Valium. She had some delirium. We were able to titrate medications. The delirium resolved. Along with those medications she also had some headaches and some nausea. We were able to titrate ADMIT: 09/13/2016 RM/LOC: 512 [facility] MR#: [id number] [address] [address] WALKER KEITH [facility] [place] [address] Discharge Summary SEX: F AGE: 76 : 1940 medications but with the headache and all of these strange symptoms she underwent an MRI of her head that showed just small vessel chronic disease without any other major abnormalities. We titrated her medicines down. She was quite hypertensive and some Norvasc was added to her regimen. Her blood pressures came under better control, her pain came under better control, her delirium, headache and nausea all cleared. She was seen by physical therapy for evaluation and treatment. She ambulated without difficulty. Dr. Rusty Bar besides doing the trigger point injection had made some adjustments to her pain pump and overall she was thought to be ready for discharge on 09/15. Her discharge medications are found on her discharge medication list. Her diet is cardiac as tolerated. Her activity is as tolerated. She will have follow up with myself and Dr. Alysia Bar each within the next week or so. Masno Glasgow MD/ vdg JOB #: [id number] CC: Mason Glasgow MD, Attending Physician Mason Glasgow MD, Family Physician
--- NOTE | 2016-10-03 11:03 | CO ---
ADMIT: 09/10/2016 RM/LOC: 508 [facility] MR#: [id number] [address] [facility] [address] [place] [phone] MARIA R KEITH [address] [place] [address] Consultation SEX: F AGE: 76 : 1940 DATE OF CONSULTATION: 09/10/2016 ATTENDING PHYSICIAN: Mason Glasgow CONSULTING PHYSICIAN: Rusty Bar MD REASON FOR CONSULT: Pain management. CHIEF COMPLAINT: Right-sided upper back pain. HISTORY: Maria R is a 76-year-old female patient who I see in the Pain Clinic. She has a long history of chronic intractable severe low back pain, and ultimately I placed an intrathecal drug infusion system (pain pump), and started her on fentanyl. Her current fentanyl dose is 300 mcg per 24 hours. Approximately 8 days ago Maria R started having right mid kira thoracic posterior chest pain. She has had no history of trauma and no other explanation for her pain. She had a complete cardiac workup, which was negative. A bone scan is pending. Maria R has a history of breast cancer. PAST MEDICAL HISTORY: Well documented in the chart. HOME MEDICATIONS: 1. Maria R is on a fairly high dose opioid regimen including her intrathecal pump. 2. Oxycodone 10 mg t.i.d. p.r.n. 3. [place] 5-10 mg every 6 hours p.r.n. 4. She also takes gabapentin. PHYSICAL EXAMINATION: GENERAL: Maria R is lying supine in her hospital bed with the head of the bed elevated approximately 45 degrees. VITAL SIGNS: Her vital signs are stable. She is tearful and appears quite uncomfortable. HEENT: Normal. NECK: Supple. LUNGS: Clear. HEART: Regular rate and rhythm without murmur. ABDOMEN: Soft, nontender, and nondistended. MUSCULOSKELETAL: Maria R has exquisite point tenderness just to the right of midline along her posterior hemithorax at the level of approximately T5-7. There is no crepitus noted. There is no overlying skin changes. ASSESSMENT: 1. Right-sided posterior thoracic back pain. 2. History of breast cancer. 3. Hypertension. 4. Chronic intractable low back pain. ADMIT: 09/10/2016 RM/LOC: 508 [facility] MR#: [id number] [address] [address] MARIA R KEITH [address] [place] [address] Consultation SEX: F AGE: 76 : 1940 5. Hypertension. 6. Depression. PLAN: I interrogated Maria R's pump and confirmed her current settings. She is getting fentanyl 300 mcg per 24 hours. I gave her a bolus of 50 mcg through the catheter over a 7-minute period. I then increased her intrathecal rate to 500 mcg per 24 hours. I also wrote an order to have her PRESIDENT [employer]LEBRITY ACQUISTION Dilaudid increased to a PRES[employer] ACQUISTION dose of 0.4 mg with a lockout of 6 minutes and a max of 6.5 mg per 4 hours. Maria R has a great deal of opioid tolerance, and her requirements for pain control are going to be higher than the average patient. I will re-evaluate her tomorrow and make adjustments to her pain pump based on the results of tonight's increase. Rusty Bar MD/ atmara JOB #: [id number] CC: Mason Glasgow, Attending Physician Mason Glasgow, Family Physician
== END 2016-09-15 10:40 | disposition home or self-care (01) | DRG 552 ==
LOC: ER 03:34 → 5MS 05:43
PROVIDERS: ADMIT Internal Medicine
PROC: 3E0233Z Introduction of Anti-inflammatory into Muscle, Percutaneous Approach (ICD-10-PCS; principal; 2016-09-11)
PROC: 3E023BZ Introduction of Anesthetic Agent into Muscle, Percutaneous Approach (ICD-10-PCS; principal; 2016-09-11)
DX: M54.6 Pain in thoracic spine (principal); F05 Delirium due to known physiological condition; N18.3 Chronic kidney disease, stage 3 (moderate); G44.40 Drug-induced headache, not elsewhere classified, not intractable; T42.8X5A Adverse effect of antiparkinsonism drugs and other central muscle-tone depressants, initial encounter; T43.215A Adverse effect of selective serotonin and norepinephrine reuptake inhibitors, initial encounter; T42.4X5A Adverse effect of benzodiazepines, initial encounter; M47.816 Spondylosis without myelopathy or radiculopathy, lumbar region; M47.812 Spondylosis without myelopathy or radiculopathy, cervical region; I12.9 Hypertensive chronic kidney disease with stage 1 through stage 4 chronic kidney disease, or unspecified chronic kidney disease; F41.9 Anxiety disorder, unspecified; I25.2 Old myocardial infarction; E78.5 Hyperlipidemia, unspecified; E66.9 Obesity, unspecified; Z68.34 Body mass index [BMI] 34.0-34.9, adult; F32.9 Major depressive disorder, single episode, unspecified; I25.10 Atherosclerotic heart disease of native coronary artery without angina pectoris; K59.09 Other constipation; M85.80 Other specified disorders of bone density and structure, unspecified site; Z96.641 Presence of right artificial hip joint; Z85.3 Personal history of malignant neoplasm of breast; Z96.653 Presence of artificial knee joint, bilateral

== ENCOUNTER → 2016-09-19 | Outpatient (CLI) | payer MEDICARE, BC ==
[~2016-09-19] MED LIST changes: +ASA CHILDREN'S81 MG PO; +CYMBALTA30 MG PO; +MEDI-PATCH WIT1 EACH TP; +METOPROLOL TART25 MG PO; +MILK OF MAGNESI10 ML PO; +NEURONTIN DPS100 MG PO; +NORVASC DPS10 MG PO; +[UNRECOGNIZED DRUG - MIXTURE] IV
== END | disposition home or self-care (01) ==
LOC: RAD.S 12:42
DX: R10.11 Right upper quadrant pain (principal); K76.89 Other specified diseases of liver

== ENCOUNTER → 2016-09-22 | Outpatient (CLI) | payer MEDICARE, BC | END | disposition home or self-care (01) | LOC: RAD.S 08:32 | DX: K80.20 Calculus of gallbladder without cholecystitis without obstruction (principal) ==

== ENCOUNTER → 2016-09-25 | Outpatient (CLI) | payer MEDICARE, BC | END | disposition home or self-care (01) | LOC: RAD.S 09-23 12:38 → PTH.S 08:45 → RAD.S 09:15 | DX: M19.011 Primary osteoarthritis, right shoulder (principal); M13.811 Other specified arthritis, right shoulder; S46.811A Strain of other muscles, fascia and tendons at shoulder and upper arm level, right arm, initial encounter; M75.81 Other shoulder lesions, right shoulder; M75.111 Incomplete rotator cuff tear or rupture of right shoulder, not specified as traumatic; M65.811 Other synovitis and tenosynovitis, right shoulder ==

== ENCOUNTER → 2016-09-29 | Outpatient (CLI) | payer MEDICARE, BC | END | disposition home or self-care (01) | LOC: RAD.S 10:30 | DX: Z12.31 Encounter for screening mammogram for malignant neoplasm of breast (principal); I10 Essential (primary) hypertension; N64.89 Other specified disorders of breast; Q83.9 Congenital malformation of breast, unspecified; Z17.0 Estrogen receptor positive status [ER+]; Z85.3 Personal history of malignant neoplasm of breast ==